=== PATIENT | female | born 1960 | race Caucasian/White ===

== ENCOUNTER 2016-12-06 16:15 | Inpatient (IN) | payer MEDICARE, OTHER ==
--- NOTE | ~2016-12-06 | DS ---
Unit #: [id number] #: [id number] Patient: KYM TELLEZ [id number] [address] [place], [place] [address] [id number] MR#: [id number] NAME: KYM TELLEZ. ROOM: 55 Age: 56 Sex: F Admission Date: 12/06/2016 : 1960 Discharge Date: 12/17/2016 Attending Physician: Mike Li M.D. Primary Care Physician: José Arshad M.D. DISCHARGE SUMMARY Please note: The patient had a lengthy stay because of acute on chronic respiratory failure. FINAL DIAGNOSES 1. Acute respiratory failure, which is resolved. 2. Chronic respiratory failure, patient is on 3 L continuous O2. 3. Pneumonia. 4. Chronic obstructive pulmonary disease exacerbation. 5. Congestive heart failure with ejection fraction of 40%. 6. Hypertension. 7. Possible obstructive sleep apnea. 8. Diabetes mellitus. 9. Hyperlipidemia. 10. Morbid obesity. 11. Nicotine abuse. DISCHARGE MEDICATIONS 1. Augmentin 875 mg p.o. b.i.d. 2. Prednisone tapering dose. 3. Symbicort 160/4.5 twice a day. 4. Levemir 10 units subcutaneous nightly. 5. Mycostatin powder topically to abdomen. 6. Hydralazine 100 mg b.i.d. 7. Spironolactone 25 mg daily. 8. Plavix 75 mg daily. 9. Nitrostat 0.4 mg sublingual p.r.n. 10. Malmo 10/325 q.6 p.r.n. dispense 24. Prescription written by Dr. Li. 11. Omeprazole 40 mg daily. 12. Imdur 60 mg daily. 13. Zanaflex on p.r.n. basis. 14. Zestril 40 mg daily. 15. Bumex 2 mg twice a day. 16. Metoprolol 50 mg q.12. 17. Januvia 100 mg daily. 18. Gabapentin continue home dose. DIAGNOSTIC STUDIES LABORATORY: Lab workup on discharge: Blood cultures are negative. BMP shows sodium 142, potassium 3.7, chloride 88, BUN 29, creatinine 0.8, calcium 9.6. WBC 7.1, hemoglobin 13, hematocrit 41.8, and platelet count of 175,000. Procalcitonin level 0.05. These are discharge labs. IMAGING: Significant radiological studies done were: Unit #: [id number] #: [id number] Patient: KYM TELLEZ CT of the chest which was done on December 14, 2016, for recurrent acute respiratory failure. It showed patchy airspace disease in the upper lobe and both lower lobes. No pulmonary embolism. CT scan of the head was done on . Because of patient's confusion, there was a concern which was negative for any acute infarction. HOSPITAL COURSE Ms. Ma, a 56-year-old morbidly obese female, was admitted on December 07, for shortness of breath and was diagnosed with acute on chronic hypercapnic hypoxic respiratory failure, acute and chronic systolic heart failure with ejection fraction of 45%, COPD exacerbation. The patient was seen by Dr. Tobin. Medications were adjusted. The patient was also seen by Dr. Combs. The patient was improving when on she had again acute respiratory failure. Chest x-ray was done, diagnosed with pneumonia and was treated with IV Zosyn. The patient has improved again. She was on 8 L Oxymizer which has been tapered down to 3 L nasal cannula. She is doing much better at this time, is being discharged home on above medications. The patient may have obstructive sleep apnea. That will be worked up as outpatient. PHYSICAL EXAMINATION On discharge: VITAL SIGNS: Blood pressure 108/54, respiratory rate 19, pulse is 60, temperature 97.8. CHEST: Decreased air entry bilaterally. CARDIOVASCULAR: S1, S2 positive. Regular rhythm. DISCHARGE INSTRUCTIONS 1. Followup primary care provider in one week. 2. Followup with Dr. Combs's nurse practitioner in two weeks. 3. Arrange sleep apnea study as outpatient. 4. Medications as per med rec. 5. [facility] to evaluation and treat for home healthcare. 6. Weight loss counseling done. Dictated by... Janell Greenberg TD: 12/18/2016 11:36 JOB #: [id number] DISCHARGE SUMMARY X Mila Diaz MD X DISCHARGE SUMMARY
--- NOTE | ~2016-12-06 | EKG ---
PATIENT: KYM TELLEZ UNIT #: [id number] Ventricular Rate: 107 BPM Atrial Rate: 107 BPM P-R Interval: 128 ms QRS Duration: 110 ms Q-T Interval: 382 ms QTC Calculation(Bezet): 509 ms P Walton: 56 degrees Calculated R Walton: 64 degrees Calculated T Walton: 28 degrees Diagnosis Line: Sinus tachycardia Diagnosis Line: Low voltage QRS Diagnosis Line: Pulmonary disease pattern Diagnosis Line: Poor R wave progression questionable lead position Diagnosis Line: or body habitus Cannot rule out Anterior infarct Diagnosis Line: Abnormal ECG Diagnosis Line: When compared with ECG of 26-APR-2016 11:43, Diagnosis Line: No significant change was found Diagnosis Line: Confirmed by LINCOLN WARD MD ([id number]) on 12/06/2016 Diagnosis Line: 6:54:12 PM INTERPRETING MD: ED ZIMMERMAN
--- NOTE | ~2016-12-06 | CO ---
Unit #: [id number] #: [id number] Patient: KYM MORAN [id number] [address] [place], [place] [address] [id number] I MR#: [id number] NAME: KYM MORAN ROOM: [facility] Age: 56 Sex: F Admission Date: 12/06/2016 : 1960 Attending Physician: Mike Li M.D. Primary Care Physician: José Arshad M.D. Consultation Date: 12/07/2016 CONSULTATION REPORT REASON FOR CONSULTATION Respiratory failure. HISTORY OF PRESENT ILLNESS The patient is a 56-year-old female with COPD, heart rate, sleep apnea, noncompliant with inhaled medicines, noncompliant with CPAP and ongoing active tobacco use. She was seen by Dr. Daniels one year ago but states that she is not followed routinely in our office. She has had a two week history of increasing shortness of breath. She has worsening dyspnea on exertion and presented to the hospital. She initially had hypercapnic hypoxemic respiratory failure with a pH of 7.32, pCO2 is 60, pO2 of 111 and was on mask ventilation. She is diuresed overnight and has been treated with nebulized bronchodilators and steroids. She feels a little better today but admits that she has not gotten out of bed. She has had some wheezing, some sputum production. No anginal type chest pain. She denies hemoptysis or fever. PAST MEDICAL HISTORY Remarkable for left ventricular dysfunction with an EF of around 40%, history of coronary artery disease, obstructive sleep apnea intolerant to CPAP, chronic respiratory failure on oxygen at night, COPD, noncompliant with controlling medications. Morbid obesity, hypertension, hyperlipidemia, diabetes, and history of kidney stones. MEDICATIONS AT HOME She has a Symbicort inhaler, which she uses p.r.n. She has a Combivent inhaler. Other medications according to med rec, Lopressor, Lasix, Zestril, Imdur, Lortab, Valium 10 mg a day, hydralazine, Prilosec, Neurontin, and tizanidine. ALLERGIES Sulfa, which "puts her sleep." Lipitor, which causes muscle cramps. SOCIAL HISTORY She continues to smoke. FAMILY HISTORY No familial lung disease. REVIEW OF SYSTEMS No anginal chest pain, although she does state if she is short of breath when she eats, she gets this sort of epigastric fullness sensation. No hemoptysis, pleurisy, melena, hematochezia, hematuria, dysuria, focal weakness, paresthesias. She says she has been "swollen." No fever or Unit #: [id number] #: [id number] Patient: KYM MORAN chills. Further review of systems negative. PHYSICAL EXAMINATION VITAL SIGNS: Patient who is afebrile, pulse 77, respiratory rate 24, blood pressure 102/53, 5'1", 277 pounds, BMI is 53. HEENT: Pupils equal, round and reactive to light. Sclerae are anicteric. Head atraumatic. NECK: Supple. No supraclavicular or cervical adenopathy appreciated, although exam hinders sensitivity to that exam. PULMONARY: A few bibasilar posterior crackles. Expiratory phase is short. No deficit wheeze or stridor. CARDIAC: Reveals distant heart tones. No definite murmur, rub or gallop. ABDOMEN: Soft, nontender, no hepatomegaly or rebound. EXTREMITIES: Reveal no significant edema currently. No calf tenderness. No clubbing or cyanosis. NEUROLOGIC: Grossly intact. No focal muscle or sensory deficit. SKIN: Warm and dry without acute rash or diaphoresis. DIAGNOSTIC STUDIES LABORATORY STUDIES: ABG as above. Currently her arterial blood gas - pH 7.45, pCO2 48, pO2 59 that was on Oxymizer. BUN is 17, creatinine 0.7, BNP 1,327. INR normal. Cardiac enzymes normal. White blood cell count was 12.2, now 9.9, hemoglobin 13.2, platelet count 185. Tox screen was not performed. IMAGING STUDIES: Chest x-ray hindered by body habitus but it does appear she has some interstitial edema. No significant pleural effusions. Cardiomegaly noted. CARDIOLOGY STUDIES: Rhythm strips are sinus. Just some baseline artifact but I do not appreciate any definite acute ischemic change. There are nonspecific ST-T wave changes. IMPRESSION 1. Acute on chronic hypercapnic/hypoxemic respiratory failure multifactorial. 2. Pulmonary edema with left ventricular dysfunction. 3. Mitral regurgitation. 4. Obstructive sleep apnea not treated. 5. Respiratory failure on nocturnal oxygen. 6. Chronic obstructive pulmonary disease with historical wheezing but no current wheezing by exam, noncompliant with inhaled medications. 7. Ongoing active tobacco use. 8. Coronary artery disease, diabetes, hypertension, hyperlipidemia, etc. PLAN Noninvasive mask ventilation, will try to transition to high flow oxygen at least during the day, continue mask ventilation at night. Continue diuresis. Continue steroid for today but those will be discontinued in the morning. I have stressed the importance of compliance with her Symbicort and that will be reinstituted here. For now, during her acute decompensation with hypercapnia, will discontinue her benzodiazepines. I would consider not using them as an outpatient if at all possible. She certainly will need to undergo re-evaluation of her sleep apnea as an outpatient given her heart failure and I have discussed briefly with her and her (1) of sleep apnea and its connection to heart failure. Certainly no smoking is a great benefit. Unit #: [id number] #: [id number] Patient: KYM MORAN Thank you very much for allowing me to participate in the care of Ms. Moran. Dictated by... Anton Combs M.D. ERNA/roz TD: 12/07/2016 11:39 JOB #: [id number] CONSULTATION REPORT X Anton Combs MD CONSULTATION REPORT
--- NOTE | ~2016-12-06 | CT71 ---
[facility] A Service [facility] RADIOLOGY TEXT RESULTS PATIENT: KYM TELLEZ LOCATION: [place] [address] : [birth year] UNIT #: [id number] AGE: [address]: Mike Li MD SEX: F ORDER DR: [id number] [facility] [address]. [place], [place] [address] [id number] I MR#: [id number] #: [id number] NAME: KYM TELLEZ : 1960 SEX: F STUDY DATE/TIME: 12/11/2016 17:15 UNIT: [facility] ROOM: [facility] STUDY DESCRIPTION: CT Head Wo Contrast Attending Physician: Mike Li M.D. Ordering Physician: Mike Li M.D. Primary Care Physician: José Arshad M.D. MEDICAL IMAGING REPORT This report is preliminary unless electronic signature is present EXAM Head CT no contrast HISTORY Mental status change, confusion for one day COMPARISON Prior head CT dated 05/04/2014. TECHNIQUE This CT exam was performed with one or more of the following radiation dose reduction techniques: automatic control, adjustment of mA and/or kV according to patient size, and iterative reconstruction. FINDINGS There is motion degradation though generally fairly mild. There is no evidence of hemorrhage, mass or hydrocephalus or extraaxial fluid collection. Brain parenchymal density is normal. The extracranial soft tissues are normal. The skull base and calvaria are normal with the exception of some ethmoid mucosal thickening as well as sphenoid sinus fluid bilaterally. IMPRESSION Negative unenhanced head CT with the exception of fluid in his sphenoid sinus chambers bilaterally. This could indicate sphenoid sinusitis but the brain itself is normal. The exam is otherwise unremarkable. Dictated by... Emiliano Hernandez M.D. [facility] A Service [facility] RADIOLOGY TEXT RESULTS PATIENT: KYM TELLEZ LOCATION: [facility] : [birth year] UNIT #: [id number] AGE: [address]: Mike Li MD SEX: F ORDER DR: THIS IS AN ELECTRONICALLY VERIFIED REPORT Emiliano Hernandez M.D. at 12/14/2016 12:27 PM ENRIKE/marisa TD: 12/12/2016 00:45 JOB #: [id number] MEDICAL IMAGING REPORT COPY
--- NOTE | ~2016-12-06 | EKG ---
PATIENT: KYM TELLEZ UNIT #: [id number] Ventricular Rate: 93 BPM Atrial Rate: 93 BPM P-R Interval: 132 ms QRS Duration: 116 ms Q-T Interval: 410 ms QTC Calculation(Bezet): 509 ms P Richford: 68 degrees Calculated R Richford: 76 degrees Calculated T Richford: 94 degrees Diagnosis Line: Normal sinus rhythm Diagnosis Line: Possible Left atrial enlargement Diagnosis Line: Prolonged QT Diagnosis Line: Abnormal ECG Diagnosis Line: When compared with ECG of 06-DEC-2016 15:56, Diagnosis Line: Minimal criteria for Anterior infarct are no Diagnosis Line: longer Present Diagnosis Line: T wave inversion no longer evident in Inferior Diagnosis Line: leads Diagnosis Line: Nonspecific T wave abnormality, worse in Lateral Diagnosis Line: leads Diagnosis Line: Confirmed by LINCOLN WARD MD ([id number]) on 12/09/2016 Diagnosis Line: 7:07:18 AM INTERPRETING MD: ED ZIMMERMAN
--- NOTE | ~2016-12-06 | BMI ---
[facility] DATE: 12/07/16 Patient: KYM TELLEZ Physician: AL[place] Address: [address] Room/Bed: [address], Zip: [place] [address] Admit Date: 12/06/16 Date of : 62 Height: 5 1 Weight: 277 126 HIGH BMI NOTE: DX: 56 Y.O. FEMALE ADMITTED FOR RESPIRATORY FAILURE ANTHROPOMETRICS: 5'1", WT: 277# (126 KG), BMI: 52.3 DIET: CC + FLUID RESTRICTION INTERVENTION: 1. CC DIET + FLUID RESTRICTION RECOMMENDATIONS: 1. RECOMMEND TO ADD HH TO CURRENT DIET ORDER ABOVE TO PROMOTE GRADUAL WEIGHT LOSS TOWARDS HEALTHY BMI (19.0-25.0) OR +/-10%IBW RD WILL F/U PER PROTOCOL Respectfully, ANGELA RENAE MS, RD, LD [facility] cc: client file
--- NOTE | ~2016-12-06 | CR72 ---
[facility] A Service of [facility] RADIOLOGY TEXT RESULTS PATIENT: KYM TELLEZ LOCATION: [place] [address] : [birth year] UNIT #: [id number] AGE: [address]: Mike Li MD SEX: F ORDER DR: [id number] [facility] [address] [place], [place] [address] [id number] I MR#: [id number] Acc #: [id number] NAME: KYM TELLEZ : 1960 SEX: F STUDY DATE/TIME: 12/08/2016 7:29 UNIT: [facility] ROOM: [facility] STUDY DESCRIPTION: CR Chest Single View Portable Attending Physician: Mike Li M.D. Ordering Physician: Magnus Dodd M.D. Primary Care Physician: José Arshad M.D. MEDICAL IMAGING REPORT This report is preliminary unless electronic signature is present EXAM AP chest radiograph HISTORY Shortness of breath for 9 days, history of heart failure, uterine carcinoma and coronary artery disease. FINDINGS An AP portable view is obtained showing cardiac enlargement. Pulmonary vascular pattern of the chest appears normal. Lungs are clear with no acute infiltrates. CONCLUSION Cardiomegaly. No evidence of overt heart failure. Dictated by... Ray Peck M.D. THIS IS AN ELECTRONICALLY VERIFIED REPORT Ray Peck M.D. at 12/08/2016 4:31 PM BOUCHRA/ian TD: 12/08/2016 08:16 JOB #: [id number] MEDICAL IMAGING REPORT COPY
--- NOTE | ~2016-12-06 | CR72 ---
[facility] A Service of [facility] RADIOLOGY TEXT RESULTS PATIENT: KYM TELLEZ LOCATION: [place] [address] : [birth year] UNIT #: [id number] AGE: [address]: Mike Li MD SEX: F ORDER DR: [id number] [facility] [address]. [place], [place] [address] [id number] I MR#: [id number] Acc #: [id number] NAME: KYM TELLEZ : 1960 SEX: F STUDY DATE/TIME: 12/12/2016 15:22 UNIT: [facility] ROOM: [facility] STUDY DESCRIPTION: CR Chest Single View Portable Attending Physician: Mike Li M.D. Ordering Physician: J Carlos Bryan M.D. Primary Care Physician: José Arshad M.D. MEDICAL IMAGING REPORT This report is preliminary unless electronic signature is present EXAM Portable chest. DATE OF EXAM 12/12/2016 HISTORY Pneumonia. Shortness of air and respiratory failure for 1 month. FINDINGS Cardiomegaly has decreased slightly since yesterday. Mild central vascular congestion persists. Mild linear atelectasis or scarring in the left mid lung. Limited evaluation of lung bases due to underpenetration. No definite airspace consolidation. IMPRESSION 1. Decreased cardiac enlargement compared to yesterday. 2. No new infiltrates are identified. 3. Sensitivity is limited by underpenetration of the left base due to large size. Dictated by... Faisal Franco M.D. THIS IS AN ELECTRONICALLY VERIFIED REPORT Faisal Franco M.D. at 12/13/2016 11:30 PM LUCINA/moy TD: 12/13/2016 00:05 JOB #: [id number] [facility] A Service of [facility] RADIOLOGY TEXT RESULTS PATIENT: KYM TELLEZ LOCATION: [place] [address] : [birth year] UNIT #: [id number] AGE: [address]: Mike Li MD SEX: F ORDER DR: MEDICAL IMAGING REPORT COPY
--- NOTE | ~2016-12-06 | EKG ---
PATIENT: KYM TELLEZ UNIT #: [id number] Ventricular Rate: 77 BPM Atrial Rate: 77 BPM P-R Interval: 126 ms QRS Duration: 114 ms Q-T Interval: 422 ms QTC Calculation(Bezet): 477 ms P Rumford: 61 degrees Calculated R Rumford: 120 degrees Calculated T Rumford: 49 degrees Diagnosis Line: Normal sinus rhythm Diagnosis Line: Left posterior fascicular block Diagnosis Line: Possible , old Inferior infarct Diagnosis Line: Abnormal ECG Diagnosis Line: When compared with ECG of 08-DEC-2016 07:03, Diagnosis Line: Left posterior fascicular block is now Present Diagnosis Line: Nonspecific T wave abnormality no longer evident Diagnosis Line: in Lateral leads Diagnosis Line: Confirmed by LINCOLN WARD MD ([id number]) on 12/10/2016 Diagnosis Line: 7:09:47 AM INTERPRETING MD: ED ZIMMERMAN
--- NOTE | ~2016-12-06 | CT16 ---
[facility] A Service of [facility] RADIOLOGY TEXT RESULTS PATIENT: KYM TELLEZ LOCATION: [facility] [id number] : [birth year] UNIT #: [id number] AGE: [address]: Mike Li MD SEX: F ORDER DR: [id number] [facility] [address] [place], [place] [address] [id number] I MR#: [id number] Acc #: [id number] NAME: KYM TELLEZ : 1960 SEX: F STUDY DATE/TIME: 12/14/2016 12:28 UNIT: [facility] ROOM: [facility] STUDY DESCRIPTION: CT Angio Chest for PE Attending Physician: Mike Li M.D. Ordering Physician: Anton Combs M.D. Primary Care Physician: José Arshad M.D. MEDICAL IMAGING REPORT This report is preliminary unless electronic signature is present EXAM 1. CT of the chest with IV contrast 12/14/[address] angiography of the pulmonary arteries HISTORY Shortness of breath and dyspnea since 12/03/2016 with acute decompensation of respiratory effort. TECHNIQUE Transaxial imaging of the chest was performed with an IV bolus of contrast media. CT angiography was performed with 3-D MIP multiplanar reconstructions through the pulmonary arteries. This CT exam was performed with one or more of the following radiation dose reduction techniques: automatic exposure control, adjustment of mA and/or kV according to patient size, and iterative reconstruction. COMPARISON STUDIES The studies compared to the previous examination of December 22, 2011. FINDINGS Scans through the lungs shows some linear infiltrate in the left upper lobe and in the right upper lobe. Some patchy infiltrate in the anterior aspect of the right lower lobe and dependently in the left lower lobe. All these are associated with some volume loss. There are enlarged left periaortic nodes which appear stable compared with the patient's last study. Small nodes are also identified in the subcarinal region also stable. Heart size in the patient is enlarged. Scans through the upper abdomen show postop changes of prior cholecystectomy. There is an incidental left renal cyst. CTA was performed with 3-D MIP multiplanar reconstructions through the pulmonary arteries. The opacification of the pulmonary arteries is STS. [facility] A Service of [facility] & [facility] RADIOLOGY TEXT RESULTS PATIENT: KYM TELLEZ LOCATION: [facility] [id number] : [birth year] UNIT #: [id number] AGE: [address]: Mike Li MD SEX: F ORDER DR: suboptimal. The central pulmonary arteries appear normal. The more peripheral pulmonary arteries do not show any definite filling defects but there certainly is some degradation due to the relatively poor contrast bolus. 3-D reconstructions were reviewed. Again the pulmonary arteries themselves appear negative but there is some limitation of the study related to the degree of opacification. There is no evidence of pleural or significant pericardial fluid. No evidence of aneurysm or dissection. CONCLUSION 1. Patchy airspace disease in the upper lobes and in both lower lobes with some volume loss. 2. No evidence of pulmonary embolism. 3. Mediastinal lymphadenopathy, stable. 4. No evidence of pulmonary embolism. No evidence of pleural or pericardial fluid. No evidence of aneurysm or dissection. 5. Status post cholecystectomy. Dictated by... Ray Peck M.D. THIS IS AN ELECTRONICALLY VERIFIED REPORT Ray Peck M.D. at 12/14/2016 4:24 PM BOUCHRA/vikash TD: 12/14/2016 15:08 JOB #: [id number] MEDICAL IMAGING REPORT COPY
--- NOTE | ~2016-12-06 | HP ---
Unit #: [id number] #: [id number] Patient: FRANCESCA MORAN [id number] [address] [place], [place] [address] [id number] MR#: [id number] NAME: FRANCESCA MORAN. ROOM: [facility] Age: 56 Sex: F Admission Date: 12/06/2016 : 1960 Attending Physician: Mike Li M.D. Primary Care Physician: José Arshad M.D. HISTORY AND PHYSICAL CHIEF COMPLAINT Shortness of breath. HISTORY OF PRESENTING ILLNESS Ms. Francesca Moran is a 56-year-old morbidly obese female with a history of chronic respiratory failure, COPD, severe mitral regurgitation, systolic congestive heart failure with ejection fraction of 45%, coronary artery disease, status post PCI in 2000, hypertension, hyperlipidemia, diabetes mellitus type 2, and tobacco abuse. PAST SURGICAL HISTORY 1. Cardiac catheterization. 2. Cholecystectomy. 3. Hernia repair. 4. Hysterectomy. HOME MEDICATIONS 1. Lopressor 50 mg twice daily. 2. Lasix 40 mg twice daily. 3. Zestril 40 mg daily. 4. Isosorbide 60 mg daily. 5. Lortab 10/325 at 1 tablet q.6 p.r.n. 6. Valium 10 mg daily. 7. Symbicort 2 puffs inhaler twice daily. 8. Hydralazine 50 mg q.8. 9. Prilosec 40 mg daily. 10. Neurontin 600 mg 3 times daily. 11. Tizanidine 4 mg 3 times daily. SOCIAL HISTORY Patient has a history of smoking and has been smoking for a long period of time. No history of alcohol abuse or illicit drug abuse. FAMILY HISTORY Coronary artery disease. Her mother had a myocardial infarction. Her father at the age of 56. Her brother also has significant heart disease and has a pacemaker. ALLERGIES SULFA MEDICATIONS. REVIEW OF SYSTEMS Patient has been having shortness of breath for the last few days which was gradually getting worse. She did not have fever, chills, or rigors. Unit #: [id number] #: [id number] Patient: FRANCESCA MORAN She has had some wheezing at home. No chest pain, no hemoptysis, no syncopal episode, no melena, no nausea, vomiting, or diarrhea, and no focal weakness. PHYSICAL EXAMINATION GENERAL: Patient is being evaluated in bed 1 in the ICU. VITAL SIGNS: Patient's BMI is 53. Blood pressure is 111/64, respiratory rate 18, pulse 86, and temperature is 97.3. HEENT: Head is normocephalic. Eye movements are normal. No conjunctival congestion. NECK: Supple. Trachea is in midline. CHEST: Decreased air entry in the bases. Some wheezing is heard. CARDIOVASCULAR: S1 and S2 positive. Regular rhythm. ABDOMEN: Obese, soft. Negative tenderness. EXTREMITIES: No significant edema. CENTRAL NERVOUS SYSTEM: Awake, alert, and oriented x3. No focal neurological deficit. SKIN: Warm and dry. DIAGNOSTIC STUDIES LABORATORY: Sodium 141, potassium 4.2, chloride 101, BUN 17, creatinine 0.7, and glucose 204. BNP is 1327. CBC shows WBC of 9.9, hemoglobin 13.2, hematocrit 42.2, and platelet count of 185,000. Troponin is less than 0.05. IMAGING: Chest x-ray shows enlargement of the cardiac silhouette. The pulmonary vasculature is abnormally prominent and somewhat indistinct. Increased peribronchial markings seen. Increased interstitial and airspace densities extending from the central lung zones toward the periphery bilaterally and symmetrically. Appearance suggests moderate to severe pulmonary edema. ASSESSMENT Patient is being admitted to the ICU with the diagnoses of: 1. Acute on chronic hypercapnic/hypoxic respiratory failure. 2. Acute on chronic systolic heart failure with ejection fraction of 45%. 3. Severe mitral regurgitation. 4. Chronic obstructive pulmonary disease. 5. Obstructive sleep apnea. 6. Hypertension. 7. Coronary artery disease with history of percutaneous coronary intervention in the past. 8. Diabetes mellitus with hyperglycemia secondary to steroids. 9. Tobacco abuse. 10. Morbid obesity. PLAN Admit to ICU. Dr. Dodd has been consulted. Patient is being started on IV Bumex 2 mg q.12 hours. Aldactone 25 mg is being added. A 2000 mL fluid restriction is being done. Ins and outs will be done. Dr. Combs has been consulted. Symbicort is being added, and mini-neb treatment is being done. Valium is being discontinued. BiPAP as per Dr. Combs. Home medications have been reviewed. Patient is being started on Levemir 10 units subcutaneous daily. Continue Accu-Cheks a.c. and at bedtime and insulin sliding scale low-dose protocol. Please refer to progress note for further orders. Dictated by Unit #: [id number] #: [id number] Patient: FRANCESCA MORAN M.D. KN/am TD: 12/07/2016 16:26 JOB #: [id number] HISTORY AND PHYSICAL X Mila Diaz MD X HISTORY AND PHYSICAL
--- NOTE | ~2016-12-06 | CR72 ---
[facility] A Service of [facility] RADIOLOGY TEXT RESULTS PATIENT: KYM TELLEZ LOCATION: [facility] 55- : 62 UNIT #: [id number] AGE: [address]: Mike Li MD SEX: F ORDER DR: [id number] [facility] [address] [facility]. [place], [place] [address] [id number] I MR#: [id number] Acc #: [id number] NAME: KYM TELLEZ. : 1960 SEX: F STUDY DATE/TIME: 12/11/2016 16:05 UNIT: [facility] ROOM: [facility] STUDY DESCRIPTION: CR Chest Single View Portable Attending Physician: Mike Li M.D. Ordering Physician: Mike Li M.D. Primary Care Physician: José Arshad M.D. MEDICAL IMAGING REPORT This report is preliminary unless electronic signature is present EXAM AP portable chest. DATE OF EXAM 12/11/2016 at 16:05. HISTORY Respiratory failure with elevated temperature and shortness of breath today. History of uterine cancer. Additional history of congestive heart failure, bronchitis and coronary artery stent placement in 1998. COMPARISON AP portable chest, 12/08/2016. FINDINGS Low volume inspiration. The study is attenuated by body habitus. Moderate cardiac enlargement is thought to be stable. Central vascular congestive changes are thought to be present without ros pulmonary edema. There is some linear opacity in the left mid lung which may represent scarring or atelectasis. No definite pleural effusion is seen. IMPRESSION 1. Moderate, but stable cardiac enlargement with suspected mild central vascular congestion. No overt changes of pulmonary edema. 2. Minimal linear scarring or linear subsegmental atelectasis in the left midlung. Dictated by... Linda Crook M.D. THIS IS AN ELECTRONICALLY VERIFIED REPORT Linda Crook M.D. at 12/21/2016 7:42 AM [facility] A Service of [facility] RADIOLOGY TEXT RESULTS PATIENT: KYM TELLEZ LOCATION: [facility] 556-01 : 62 UNIT #: [id number] AGE: [address]: Mike Li MD SEX: F ORDER DR: JEFF/moy TD: 12/11/2016 22:57 JOB #: [id number] MEDICAL IMAGING REPORT COPY
--- NOTE | ~2016-12-06 | A ---
[facility] Nutrition Therapy DATE: 12/16/16 Patient: KYM TELLEZ Physician: ALMA Address: [address] Room/Bed: [address] [place] [address], Zip: [place] [address] Admit Date: 12/06/16 Date of : 62 Height: 5 1 Weight: 280 127.4 NUTRITIONAL ASSESSMENT: REASON: LOS PMH: Chronic resp failure, COPD, Severe mitral regurg, CHF, CAD, HTN, DM, 2-3 PPD smoker Anthropometrics: 61", 284#, BMI 53.7 Labs: Cl- 92, Gluc 285, POC 121-335, A1c on admit-7.6 Meds: Bumex, Novolog-high SS, Solumedrol, Zofran-prn, Levemir, Januvia Assessment: 56 y/o female admitted for respiratory failure, AE CHF. RD trigger for LOS. Tolerating Cardiac/Carb consistent diet. Consuming 75-100% of meals. Poor senior living but denies chewing or swallowing difficulty. No N/V/D. Reviewed current diet restrictions-pt verbalized understanding. Dx: Morbid obesity r/t lifestyle, diet noncompiance AEB BMI >40. Intervention: 1. Carb consistent/Heart healthy diet Monitoring, Evaluation and Goals: 1. Consume >50% of meals 2. Improve Gluc Recommendations: Continue current diet to promote gradual wt loss towards healthy BMI. Respectfully, GUICHO RECINOS RD, LD [facility] cc: client file
--- NOTE | ~2016-12-06 | CR63 ---
[facility] A Service of [facility] RADIOLOGY TEXT RESULTS PATIENT: KYM TELLEZ LOCATION: [facility] [id number] : 62 UNIT #: [id number] AGE: [address]: Mike Li MD SEX: F ORDER DR: [id number] [facility] [address] [facility]. [place], [place] [address] [id number] I MR#: [id number] Acc #: [id number] NAME: KYM TELLEZ : 1960 SEX: F STUDY DATE/TIME: 12/14/2016 8:34 UNIT: [facility] ROOM: [facility] STUDY DESCRIPTION: CR Chest 2 View Attending Physician: Mike Li M.D. Ordering Physician: Shahbaz Briseno M.D. Primary Care Physician: José Arshad M.D. MEDICAL IMAGING REPORT This report is preliminary unless electronic signature is present EXAM PA and lateral chest DATE OF EXAMINATION 12/14/2016 COMPARISON Comparison examination is dated 12/12/2016. HISTORY Shortness of breath, pneumonia, respiratory failure, and cough. Admitted on 12/06/2016 for the above symptoms. FINDINGS PA and lateral views of the chest are obtained. The film is underpenetrated. Exam shows an obscured diaphragm on the lateral film and the left hemidiaphragm is not clearly seen. There is also some vague increased density in the right upper lobe. This is on a background of passive congestion. CONCLUSION Continued cardiomegaly. Passive congestion. Question raised of infiltrates in the right upper lobe and left base. Please note that this film is markedly underpenetrated and not of diagnostic quality. Dictated by... Ray Peck M.D. THIS IS AN ELECTRONICALLY VERIFIED REPORT Ray Peck M.D. at 12/14/2016 4:24 PM BOUCHRA/alber [facility] A Service of [facility] RADIOLOGY TEXT RESULTS PATIENT: KYM TELLEZ LOCATION: [facility] : 62 UNIT #: [id number] AGE: [address]: Mike Li MD SEX: F ORDER DR: TD: 12/14/2016 11:38 JOB #: [id number] MEDICAL IMAGING REPORT COPY
--- NOTE | ~2016-12-06 | CO ---
Unit #: [id number] #: [id number] Patient: KYM TELLEZ [id number] [address] [place], [place] [address] [id number] I MR#: [id number] NAME: KYM TELLEZ. ROOM: [facility] Age: 56 Sex: F Admission Date: 12/06/2016 : 1960 Attending Physician: Mike Li M.D. Primary Care Physician: José Arshad M.D. CONSULTATION REPORT REASON FOR CONSULTATION Congestive heart failure. HISTORY OF PRESENT ILLNESS This is a 56-year-old female who is known to Dr. Dodd that has a history of coronary artery disease where she underwent angioplasty to the right coronary artery in 2000 after old inferior wall myocardial infarction. Her last cardiac testing was in 2012 where she was found to have single vessel coronary artery disease with 50% stenosis of the mid right coronary artery. Her ejection fraction at that time was 40 to 45%. She has hypertension, diabetes and severe COPD. The patient was admitted with a one week history of worsening dyspnea at rest and on exertion. She has mid sternal chest tightness on exertion without radiation to her neck, arm or jaw. There is no associated dyspnea or palpitations. She reports no fever, chills or hemoptysis. She came to the emergency room for evaluation where she was found to have an elevated BNP of 1,950. Chest x-ray was noted for congestive heart failure. She was treated in the emergency room with IV steroids, nitrates and diuretics. She was placed on BiPAP and subsequently was transferred to the intensive care unit. Her troponin has been negative with no acute ischemic changes on EKG. PAST MEDICAL HISTORY 1. Old inferior wall myocardial infarction status post PCI to the right coronary artery in 2000. 2. 2D echocardiogram, 10/28/2015, in our office which shows an ejection fraction of 45 to 50% with impaired left ventricular relaxation. There is moderate to severe mitral regurgitation, mild to moderate tricuspid regurgitation and moderate concentric left ventricular hypertrophy. 3. Dobutamine Cardiolite stress test, 05/06/2014, which showed no ischemia or infarct. Ejection fraction of 51%. 4. Chronic systolic heart failure. 5. Hypertension. 6. Hyperlipidemia. 7. Diabetes mellitus type 2. 8. COPD. 9. Obesity. 10. Questionable statin myopathy. 11. Renal calculi. 12. Nicotine abuse. PAST SURGICAL HISTORY Unit #: [id number] #: [id number] Patient: KYM TELLEZ 1. Cholecystectomy. 2. Hysterectomy. 3. Hernia repair. SOCIAL HISTORY The patient is . She continues to smoke a pack of cigarettes daily. There is no report of illicit drug or alcohol use. FAMILY HISTORY Positive for myocardial infarction in a mother in her eighties. Father from a [place] at age 56. She had a brother who had heart disease and a pacemaker. ALLERGIES Sulfa and atorvastatin. HOME MEDICATIONS 1. Metoprolol tartrate 50 mg b.i.d. 2. Furosemide 40 mg b.i.d. 3. Lisinopril 40 mg daily. 4. Isosorbide mononitrate 60 mg daily. 5. Hydrocodone/acetaminophen 10/325 mg q.6 hours p.r.n. 6. Diazepam 10 mg daily. 7. Symbicort 160/4.5 mcg two puffs b.i.d. 8. Hydralazine 50 mg q.8 hours. 9. Prilosec 40 mg daily. 10. Neurontin 600 mg t.i.d. 11. Zanaflex 4 mg t.i.d. REVIEW OF SYSTEMS CONSTITUTIONAL: Negative for fever or chills. The patient reports no weight gain or weight loss. HEENT: No headache, hearing or vision changes, difficulty with swallowing. No dizziness. CARDIOVASCULAR: The patient has chest pain as described in the HPI. The patient denies palpitations. No paroxysmal nocturnal dyspnea, orthopnea. The patient denies syncope or near syncope. RESPIRATORY: Positive for dyspnea at rest and on exertion. No cough or hemoptysis. GASTROINTESTINAL: No abdominal pain, nausea, vomiting. No constipation or melena. EXTREMITIES: Negative for lower extremity edema. PHYSICAL EXAMINATION GENERAL APPEARANCE: This is 56-year-old, mildly obese white female who is in no acute respiratory distress. VITAL SIGNS: Blood pressure 114/59. Heart rate 89. Temperature 97.3. BMI 53. NEUROLOGIC: She is awake, alert and oriented without focal weakness. NECK: Trachea is midline. No thyromegaly or lymphadenopathy. No jugular venous distention. HEART: S1, S2. Heart sounds are normal. No murmurs, rubs or clicks. Regular rate and rhythm. No S3. CHEST: Diminished breath sounds with fine rales at the bases. No rhonchi or wheezing. ABDOMEN: Soft, obese with bowel sounds present. No organomegaly. EXTREMITIES: Without leg edema. SKIN: Warm and dry. Unit #: [id number] #: [id number] Patient: KYM TELLEZ DIAGNOSTIC STUDIES LABORATORY: Glucose 204, BUN 17, creatinine 0.7, sodium 141, potassium 4.2. BNP 1,327. CK MB 4.1. Troponin less than 0.05 x2. White count 9.9, hemoglobin 13.2, hematocrit 42.2, platelet count 185. IMAGING: Chest x-ray shows cardiomegaly and pulmonary edema. CARDIOVASCULAR: EKG: Sinus tachycardia with a rate of 107 beats per minute with poor R wave progression, questionable old anterior infarct with a QS pattern in V1 through V4. Low voltage QRS. IMPRESSION 1. Acute on chronic systolic heart failure. 2. Severe mitral regurgitation. 3. Cardiomyopathy with an ejection fraction of 45%. 4. Severe COPD. 5. Hypertension. 6. Stable angina with history of old inferior wall myocardial infarction status post PCI of the right coronary artery in 2000. 7. Diabetes mellitus type 2. 8. Morbid obesity. PLAN 1. Cardiology was consulted for congestive heart failure. We will increase IV diuretics. 2. Aldactone will be added. 3. Continue afterload reduction with TANA inhibitor. 4. The patient will need a right and left heart catheterization once fluid overload improves. 5. The patient has a widening QRS. We may consider revascularization therapy. 6. We will follow the patient with you. 7. Thank you for allowing us to assist with this patient's care. Dictated by... Minh Ferrer A.P.R.N. for Janell Alba/tory TD: 12/08/2016 06:43 JOB #: [id number] CONSULTATION REPORT X Minh Ferrer APRN X CONSULTATION REPORT
--- NOTE | ~2016-12-06 | CR72 ---
[facility] A Service of [facility] RADIOLOGY TEXT RESULTS PATIENT: KYM TELLEZ LOCATION: [address]11-25 : 62 UNIT #: [id number] AGE: [address]: Mike Li MD SEX: F ORDER DR: [id number] [facility] [address] [place], [place] [address] [id number] I MR#: [id number] Acc #: [id number] NAME: KYM TELLEZ : 1960 SEX: F STUDY DATE/TIME: 12/06/2016 15:59 UNIT: [facility] ROOM: [facility] STUDY DESCRIPTION: CR Chest Single View Portable Attending Physician: Mike Li M.D. Ordering Physician: Raymundo Blanca M.D. Primary Care Physician: José Arshad M.D. MEDICAL IMAGING REPORT This report is preliminary unless electronic signature is present EXAM Portable chest x-ray, 12/06/2016 HISTORY Short of air, cough. Dyspnea. Smoker 20-plus years. FINDINGS AP radiograph of chest presented. Comparison 07/23/2016. No acute bony abnormality. Enlargement of the cardiac silhouette compared to prior study. This may be a reflection of chamber enlargement or pericardial fluid. The pulmonary vasculature is abnormally prominent and somewhat indistinct. Increased peribronchial markings. Increased interstitial and airspace densities extending from the central lung zones toward the periphery bilaterally and symmetrically. Appearance suggests moderate to severe pulmonary edema with interstitial and airspace components. No definite pleural effusion. No pneumothorax. Followup to radiographic resolution recommended. Dictated by... Ray Diaz M.D. THIS IS AN ELECTRONICALLY VERIFIED REPORT Ray Diaz M.D. at 12/07/2016 10:16 PM JOSE ELIAS/pal TD: 12/06/2016 21:49 JOB #: [id number] MEDICAL IMAGING REPORT COPY
[2016-12-06 16:04] LABS: ARTERIAL BLD GAS O2 SATURATION 91.1 % (90.0-100.0); ARTERIAL BLOOD GAS CARBOXY HB 2.1 %sat (0.0-9.0); ARTERIAL BLOOD GAS HCO3 28.6 mmol/L; ARTERIAL BLOOD GAS MET HB 0.4 %sat (0.0-2.0); ARTERIAL BLOOD GAS pH 7.361 (7.350-7.450)
[2016-12-06 16:05] LABS: ARTERIAL BLOOD GAS ART SITE RIGHT RADIAL; ARTERIAL BLOOD GAS DELIVERY NASAL CANNULA; ARTERIAL BLOOD GAS FIO2 0.32 %; ARTERIAL BLOOD GAS PCO2 50.6 mmHg (35.0-45.0); ARTERIAL BLOOD GAS PO2 71.4 mmHg (80.0-100); ARTERIAL DRAW? YES
[2016-12-06 16:10] LABS: BASOPHIL# 0.1 X10e3 (0-0.3); BASOPHIL% 0.6 % (0-2.5); EOSINOPHIL# 0.1 X10e3 (0-0.7); HEMATOCRIT 42.7 % (35.0-45.0); HEMOGLOBIN 13.3 gm/dL (12.0-16.0); LYMPHOCYTE# 2.1 X10e3 (1.0-3.5); LYMPHOCYTE% 17.5 % (17.0-45.0); MEAN CORPUSCULAR HEMOGLOBIN 25.6 PG (28-34); MEAN CORPUSCULAR HGB CONC 31.2 g/dL (30-36); MEAN PLATELET VOLUME 9.9 FL (6.5-11.5); MONOCYTE% 8.3 % (3.0-12.0); NEUTROPHIL# 8.9 X10e3 (1.5-7.1); NEUTROPHIL% 72.6 % (40-75); PLATELET COUNT 180 X10e3 (140-420); RED BLOOD COUNT 5.21 X10e (3.90-5.30); RED CELL DISTRIBUTION WIDTH 16.6 % (11.0-15.5); WHITE BLOOD COUNT 12.2 X10e3 (4.0-10.5)
[2016-12-06 16:13] LABS: DIFF IND NO
[~2016-12-06 16:15] MED LIST: ACETAMINOPHEN650 M3 PO; ALBUTEROL 0.5ML INH; ALBUTEROL17 GM INH; ALPRAZOLAM PO; APRESOLINE PO; ARTHRITIS MED; ASPIRIN EC81 M1 PO; ASPIRIN PO; ASPIRIN81 M1 PO; ASPIRIN81 MG PO; BAYER CHEWABLE81 MG PO; BREO ELLIPTA 21 EACH INH; CHANTIX1 DOSE-PAC PO; COMBIVENT INH14.7 GM; COMBIVENT U/D3 M1 INH; COMBIVENT U/D3 ML INH; COMBIVENT14.7 GM INH; DIAZEPAM PO; DIAZEPAM10 MG PO; EFFEXOR-XR37.5 MG PO; FAMOTIDINE PO; FLEXERIL PO; FLOMAX0.4 M1 PO; FUROSEMIDE40 MG PO; GABAPENTIN600 MG PO; HYCODAN60 ML 5MG/ PO; HYDRALAZINE HCL25 MG PO; HYDRALAZINE HCL50 MG PO; HYDROCHLOROTHIA25 MG PO; HYDROCODON-ACE1 EAC9 PO; HYDROCODON-ACE1 EACH PO; IMDUR PO; IMDUR-ER60 M1 PO; LASIX PO; LESCOL PO; LEVAQUIN PO; LEVAQUIN750 M1 PO; LEVAQUIN750 MG PO; LIPITOR PO; LISINOPRIL PO; LISINOPRIL-HCTZ1 T14 PO; LISINOPRIL20 MG PO; LOPRESSOR PO; LORTAB 10-3251 EACH PO; LORTAB 5/500 TA1 TA2 PO; METOPROLOL SUCC25 MG PO; METOPROLOL SUCC50 MG; METOPROLOL SUCC50 MG PO; METOPROLOL TAR25 MG PO; MOBIC PO; NEBULIZER1 PKT MC; NERVE PILL; NEURONTIN600 MG PO; NEXIUM PO; OXYGEN; PANTOPRAZOLE SO40 MG PO; PERCOCET 7.5-31 EACH PO; PLAVIX PO; PRAVACHOL PO; PRAVACHOL10 MG PO; PREDNISONE PO; PREDNISONE10 MG PO; PROTONIX PO; PULMICORT0.25 MG/2 IH; SYMBICORT INH; SYMBICORT80 INH; TIZANIDINE HCL4 M1 PO; TOPROL XL PO; TOPROL XL50 MG PO; TRAMADOL HCL50 M2 PO; TUSSIONEX PENN473 ML PO; TYLOX1 CAP 5/50 PO; VICODIN 5/1 TAB 5/50 PO; VISTARIL PO; ZESTORETIC1 TAB PO; ZESTRIL40 MG PO; ZITHROMAX PO; ZITHROMAX1 G/PKT PO; ZOCOR PO; ZOCOR20 MG PO
[2016-12-06 16:16] LABS: POC - CKMB 4.6 ng/mL (0.0-7.9); POC - TROPONIN <0.05 ng/mL (<=0.05)
[2016-12-06 16:23] LABS: INR 1.1; PARTIAL THROMBOPLASTIN TIME 25.4 SECONDS (23.5-31.3); PROTHROMBIN TIME (PATIENT) 11.4 SECONDS (9.6-11.5)
[2016-12-06 16:41] LABS: ALBUMIN SERUM 3.3 g/dL (3.5-5.0); ALKALINE PHOSPHATASE 120 U/L (32-92); ALT (SGPT) 35 U/L (10-40); AST (SGOT) 32 U/L (10-42); BILIRUBIN, DIRECT 0.3 mg/dL (0.0-0.2); BILIRUBIN,INDIRECT 0.9 mg/dL (0.0-0.9); BILIRUBIN,TOTAL 1.2 mg/dL (0.2-2.0); BLOOD UREA NITROGEN 15 mg/dL (9-23); BUN/CREATININE RATIO 16.66; CALCIUM SERUM 8.7 mg/dL (8.4-10.2); CARBON DIOXIDE 27 mmol/L (22-31); CHLORIDE 103 mmol/L (100-111); CREATININE SERUM 0.9 mg/dL (0.6-1.4); GLOM FILT RATE Estimated ABOVE60 mL/min (>60); GLUCOSE FASTING 222 mg/dL (70-110); POTASSIUM 3.6 mmol/L (3.5-5.1); PROTEIN TOTAL SERUM 6.8 g/dL (6.0-8.3); SODIUM 138 mmol/L (135-145)
[2016-12-06] MEDS ORDERED: LOPRESSOR PO (18:11)
[2016-12-06] MEDS ORDERED: ZESTRIL40 MG PO (18:14)
[2016-12-06] MEDS ORDERED: LASIX PO (18:14)
[2016-12-06] MEDS ORDERED: LORTAB 10-3251 EACH PO (18:15)
[2016-12-06] MEDS ORDERED: ISOSORBIDE MONO60 M1 PO (18:15)
[2016-12-06] MEDS ORDERED: VALIUM10 M1 PO (18:16)
[2016-12-06] MEDS ORDERED: SYMBICORT INH (18:16)
[2016-12-06] MEDS ORDERED: HYDRALAZINE HCL50 MG PO (18:17)
[2016-12-06] MEDS ORDERED: NEURONTIN600 MG PO (18:17)
[2016-12-06] MEDS ORDERED: PRILOSEC PO (18:17)
[2016-12-06] MEDS ORDERED: TIZANIDINE HCL4 M1 PO (18:18)
[2016-12-06 18:19] LABS: POC - CKMB 4.1 ng/mL (0.0-7.9); POC - TROPONIN <0.05 ng/mL (<=0.05)
[2016-12-06 19:01] LABS: ARTERIAL BLD GAS O2 SATURATION 95.9 % (90.0-100.0); ARTERIAL BLOOD GAS CARBOXY HB 1.6 %sat (0.0-9.0); ARTERIAL BLOOD GAS MET HB 0.5 %sat (0.0-2.0)
[2016-12-06 19:02] LABS: ARTERIAL BLOOD GAS ART SITE RIGHT RADIAL; ARTERIAL BLOOD GAS PCO2 60.2 mmHg (35.0-45.0); ARTERIAL DRAW? YES
[2016-12-07 05:40] LABS: BASOPHIL% 0.4 % (0-2.5); HEMATOCRIT 42.2 % (35.0-45.0); HEMOGLOBIN 13.2 gm/dL (12.0-16.0); LYMPHOCYTE# 0.9 X10e3 (1.0-3.5); LYMPHOCYTE% 9.4 % (17.0-45.0); MEAN CELL VOLUME 81.6 FL (83-96); MEAN CORPUSCULAR HEMOGLOBIN 25.6 PG (28-34); MEAN CORPUSCULAR HGB CONC 31.3 g/dL (30-36); MONOCYTE# 0.2 X10e3 (0-1.0); MONOCYTE% 1.8 % (3.0-12.0); NEUTROPHIL# 8.7 X10e3 (1.5-7.1); NEUTROPHIL% 88.4 % (40-75); PLATELET COUNT 185 X10e3 (140-420); RED BLOOD COUNT 5.17 X10e (3.90-5.30); RED CELL DISTRIBUTION WIDTH 16.3 % (11.0-15.5); WHITE BLOOD COUNT 9.9 X10e3 (4.0-10.5)
[2016-12-07 05:45] LABS: DIFF IND NO
[2016-12-07 06:25] LABS: BLOOD UREA NITROGEN 17 mg/dL (9-23); BUN/CREATININE RATIO 24.28; CALCIUM SERUM 8.5 mg/dL (8.4-10.2); CARBON DIOXIDE 31 mmol/L (22-31); CHLORIDE 101 mmol/L (100-111); CREATININE SERUM 0.7 mg/dL (0.6-1.4); GLOM FILT RATE Estimated ABOVE60 mL/min (>60); GLUCOSE FASTING 204 mg/dL (70-110); POTASSIUM 4.2 mmol/L (3.5-5.1); SODIUM 141 mmol/L (135-145)
[2016-12-07] MEDS ORDERED: JANUVIA PO (06:41)
[2016-12-07 08:41] LABS: ARTERIAL BLD GAS O2 SATURATION 89.4 % (90.0-100.0); ARTERIAL BLOOD GAS HCO3 33.7 mmol/L; ARTERIAL BLOOD GAS MET HB 0.9 %sat (0.0-2.0); ARTERIAL BLOOD GAS PCO2 47.9 mmHg (35.0-45.0); ARTERIAL BLOOD GAS PO2 59.3 mmHg (80.0-100); ARTERIAL BLOOD GAS pH 7.456 (7.350-7.450)
[2016-12-07 08:42] LABS: ARTERIAL BLOOD GAS ALLEN TEST NORMAL; ARTERIAL BLOOD GAS ART SITE LEFT RADIAL; ARTERIAL BLOOD GAS DELIVERY NASAL CANNULA; ARTERIAL DRAW? YES
[2016-12-08 06:09] LABS: BASOPHIL% 0.2 % (0-2.5); EOSINOPHIL% 0.1 % (0.0-7.0); HEMATOCRIT 41.3 % (35.0-45.0); HEMOGLOBIN 13.1 gm/dL (12.0-16.0); LYMPHOCYTE# 0.9 X10e3 (1.0-3.5); LYMPHOCYTE% 4.8 % (17.0-45.0); MEAN CELL VOLUME 81.8 FL (83-96); MEAN CORPUSCULAR HEMOGLOBIN 25.9 PG (28-34); MEAN CORPUSCULAR HGB CONC 31.7 g/dL (30-36); MEAN PLATELET VOLUME 10.3 FL (6.5-11.5); MONOCYTE% 5.4 % (3.0-12.0); NEUTROPHIL# 16.2 X10e3 (1.5-7.1); NEUTROPHIL% 89.5 % (40-75); PLATELET COUNT 184 X10e3 (140-420); RED BLOOD COUNT 5.05 X10e (3.90-5.30); RED CELL DISTRIBUTION WIDTH 16.5 % (11.0-15.5)
[2016-12-08 06:20] LABS: DIFF IND YES; WHITE BLOOD COUNT 18.1 X10e3 (4.0-10.5)
[2016-12-08 06:29] LABS: BILIRUBIN,TOTAL 0.4 mg/dL (0.2-2.0); BUN/CREATININE RATIO 26.36; CALCIUM SERUM 8.9 mg/dL (8.4-10.2); CREATININE SERUM 1.1 mg/dL (0.6-1.4); GLOM FILT RATE Estimated 54.8 mL/min (>60); POTASSIUM 4.2 mmol/L (3.5-5.1); PROTEIN TOTAL SERUM 5.9 g/dL (6.0-8.3)
[2016-12-08 07:58] LABS: ANISOCYTOSIS SL; PLATELET ESTIMATE NORMAL (NORMAL)
[2016-12-08 07:59] LABS: RBC NORMAL YES
[2016-12-09 05:30] LABS: BASOPHIL% 0.2 % (0-2.5); EOSINOPHIL% 0.1 % (0.0-7.0); HEMATOCRIT 41.2 % (35.0-45.0); HEMOGLOBIN 12.9 gm/dL (12.0-16.0); LYMPHOCYTE# 2.4 X10e3 (1.0-3.5); MEAN CELL VOLUME 82.1 FL (83-96); MEAN CORPUSCULAR HEMOGLOBIN 25.7 PG (28-34); MEAN CORPUSCULAR HGB CONC 31.2 g/dL (30-36); MEAN PLATELET VOLUME 10.3 FL (6.5-11.5); MONOCYTE# 1.5 X10e3 (0-1.0); MONOCYTE% 10.9 % (3.0-12.0); NEUTROPHIL# 10.2 X10e3 (1.5-7.1); NEUTROPHIL% 71.8 % (40-75); PLATELET COUNT 208 X10e3 (140-420); RED BLOOD COUNT 5.02 X10e (3.90-5.30); RED CELL DISTRIBUTION WIDTH 16.6 % (11.0-15.5); WHITE BLOOD COUNT 14.2 X10e3 (4.0-10.5)
[2016-12-09 05:33] LABS: DIFF IND NO
[2016-12-09 06:09] LABS: BLOOD UREA NITROGEN 33 mg/dL (9-23); BUN/CREATININE RATIO 36.66; CALCIUM SERUM 8.7 mg/dL (8.4-10.2); CARBON DIOXIDE 36 mmol/L (22-31); CHLORIDE 99 mmol/L (100-111); CREATININE SERUM 0.9 mg/dL (0.6-1.4); GLOM FILT RATE Estimated ABOVE60 mL/min (>60); GLUCOSE FASTING 114 mg/dL (70-110); POTASSIUM 3.5 mmol/L (3.5-5.1); SODIUM 141 mmol/L (135-145)
[2016-12-10 05:03] LABS: HEMATOCRIT 42.8 % (35.0-45.0); HEMOGLOBIN 13.3 gm/dL (12.0-16.0); MEAN CELL VOLUME 81.6 FL (83-96); MEAN CORPUSCULAR HEMOGLOBIN 25.4 PG (28-34); MEAN CORPUSCULAR HGB CONC 31.1 g/dL (30-36); MEAN PLATELET VOLUME 9.7 FL (6.5-11.5); RED BLOOD COUNT 5.24 X10e (3.90-5.30); RED CELL DISTRIBUTION WIDTH 16.9 % (11.0-15.5); WHITE BLOOD COUNT 9.3 X10e3 (4.0-10.5)
[2016-12-10 05:24] LABS: PARTIAL THROMBOPLASTIN TIME 23.2 SECONDS (23.5-31.3); PROTHROMBIN TIME (PATIENT) 10.5 SECONDS (9.6-11.5)
[2016-12-10 06:30] LABS: BLOOD UREA NITROGEN 26 mg/dL (9-23); BUN/CREATININE RATIO 28.88; CALCIUM SERUM 8.9 mg/dL (8.4-10.2); CARBON DIOXIDE 35 mmol/L (22-31); CHLORIDE 99 mmol/L (100-111); CREATININE SERUM 0.9 mg/dL (0.6-1.4); GLOM FILT RATE Estimated ABOVE60 mL/min (>60); GLUCOSE FASTING 127 mg/dL (70-110); POTASSIUM 4.1 mmol/L (3.5-5.1); SODIUM 142 mmol/L (135-145)
[2016-12-11 08:20] LABS: BLOOD UREA NITROGEN 21 mg/dL (9-23); BUN/CREATININE RATIO 26.25; CALCIUM SERUM 8.9 mg/dL (8.4-10.2); CARBON DIOXIDE 31 mmol/L (22-31); CHLORIDE 98 mmol/L (100-111); CREATININE SERUM 0.8 mg/dL (0.6-1.4); GLOM FILT RATE Estimated ABOVE60 mL/min (>60); GLUCOSE FASTING 197 mg/dL (70-110); POTASSIUM 3.9 mmol/L (3.5-5.1); SODIUM 136 mmol/L (135-145)
[2016-12-11 14:43] LABS: ARTERIAL BLD GAS O2 SATURATION 90.4 % (90.0-100.0); ARTERIAL BLOOD GAS CARBOXY HB 1.3 %sat (0.0-9.0); ARTERIAL BLOOD GAS HCO3 33.9 mmol/L; ARTERIAL BLOOD GAS MET HB 0.7 %sat (0.0-2.0); ARTERIAL BLOOD GAS pH 7.358 (7.350-7.450)
[2016-12-11 14:44] LABS: ARTERIAL BLOOD GAS ALLEN TEST NORMAL; ARTERIAL BLOOD GAS ART SITE LEFT RADIAL; ARTERIAL BLOOD GAS DELIVERY NASAL CANNULA; ARTERIAL BLOOD GAS PCO2 60.2 mmHg (35.0-45.0); ARTERIAL BLOOD GAS PO2 63.5 mmHg (80.0-100); ARTERIAL DRAW? YES
[2016-12-11 15:11] LABS: URINE APPEARANCE CLEAR; URINE BILIRUBIN NEG (NEG); URINE BLOOD NEG (NEG); URINE COLOR YELLOW; URINE GLUCOSE NEG (NEG); URINE KETONE NEG (NEG); URINE LEUKOCYTE ESTERASE NEG (NEG); URINE NITRATE NEG (NEG); URINE PROTEIN NEG (NEG)
[2016-12-11 15:19] LABS: CULTURE INDICATED? NO
[2016-12-12 14:51] LABS: ARTERIAL BLD GAS O2 SATURATION 95.5 % (90.0-100.0); ARTERIAL BLOOD GAS CARBOXY HB 1.1 %sat (0.0-9.0); ARTERIAL BLOOD GAS HCO3 32.8 mmol/L; ARTERIAL BLOOD GAS MET HB 0.9 %sat (0.0-2.0); ARTERIAL BLOOD GAS PO2 85.8 mmHg (80.0-100); ARTERIAL BLOOD GAS pH 7.378 (7.350-7.450)
[2016-12-12 14:52] LABS: ARTERIAL BLOOD GAS ALLEN TEST N; ARTERIAL BLOOD GAS ART SITE RIGHT RADIAL; ARTERIAL BLOOD GAS DELIVERY OXYMIZER; ARTERIAL BLOOD GAS PCO2 55.8 mmHg (35.0-45.0); ARTERIAL DRAW? YES
[2016-12-13 08:30] LABS: BASOPHIL% 0.5 % (0-2.5); EOSINOPHIL% 0.1 % (0.0-7.0); HEMATOCRIT 44.2 % (35.0-45.0); LYMPHOCYTE# 0.3 X10e3 (1.0-3.5); LYMPHOCYTE% 6.1 % (17.0-45.0); MEAN CELL VOLUME 81.8 FL (83-96); MEAN CORPUSCULAR HEMOGLOBIN 25.9 PG (28-34); MEAN CORPUSCULAR HGB CONC 31.6 g/dL (30-36); MONOCYTE# 0.2 X10e3 (0-1.0); MONOCYTE% 4.5 % (3.0-12.0); NEUTROPHIL# 4.9 X10e3 (1.5-7.1); NEUTROPHIL% 88.8 % (40-75); PLATELET COUNT 149 X10e3 (140-420); RED BLOOD COUNT 5.41 X10e (3.90-5.30); RED CELL DISTRIBUTION WIDTH 15.9 % (11.0-15.5); WHITE BLOOD COUNT 5.5 X10e3 (4.0-10.5)
[2016-12-13 08:34] LABS: DIFF IND NO
[2016-12-13 09:00] LABS: BLOOD UREA NITROGEN 26 mg/dL (9-23); BUN/CREATININE RATIO 28.88; CARBON DIOXIDE 31 mmol/L (22-31); CHLORIDE 100 mmol/L (100-111); CREATININE SERUM 0.9 mg/dL (0.6-1.4); GLOM FILT RATE Estimated ABOVE60 mL/min (>60); GLUCOSE FASTING 201 mg/dL (70-110); POTASSIUM 4.4 mmol/L (3.5-5.1); SODIUM 138 mmol/L (135-145)
[2016-12-14 08:01] LABS: BLOOD UREA NITROGEN 28 mg/dL (9-23); CALCIUM SERUM 8.3 mg/dL (8.4-10.2); CARBON DIOXIDE 31 mmol/L (22-31); CHLORIDE 102 mmol/L (100-111); CREATININE SERUM 0.8 mg/dL (0.6-1.4); GLOM FILT RATE Estimated ABOVE60 mL/min (>60); GLUCOSE FASTING 136 mg/dL (70-110); POTASSIUM 3.8 mmol/L (3.5-5.1); SODIUM 143 mmol/L (135-145)
[2016-12-15 09:10] LABS: BLOOD UREA NITROGEN 28 mg/dL (9-23); BUN/CREATININE RATIO 31.11; CARBON DIOXIDE 40 mmol/L (22-31); CHLORIDE 96 mmol/L (100-111); CREATININE SERUM 0.9 mg/dL (0.6-1.4); GLOM FILT RATE Estimated ABOVE60 mL/min (>60); GLUCOSE FASTING 139 mg/dL (70-110); POTASSIUM 4.2 mmol/L (3.5-5.1); SODIUM 143 mmol/L (135-145)
[2016-12-16 05:12] LABS: HEMATOCRIT 41.8 % (35.0-45.0); MEAN CELL VOLUME 81.9 FL (83-96); MEAN CORPUSCULAR HEMOGLOBIN 25.5 PG (28-34); MEAN CORPUSCULAR HGB CONC 31.1 g/dL (30-36); MEAN PLATELET VOLUME 9.9 FL (6.5-11.5); RED BLOOD COUNT 5.1 X10e (3.90-5.30); RED CELL DISTRIBUTION WIDTH 16.3 % (11.0-15.5); WHITE BLOOD COUNT 7.1 X10e3 (4.0-10.5)
[2016-12-16 06:05] LABS: BLOOD UREA NITROGEN 31 mg/dL (9-23); CALCIUM SERUM 8.7 mg/dL (8.4-10.2); CARBON DIOXIDE 39 mmol/L (22-31); CHLORIDE 92 mmol/L (100-111); GLOM FILT RATE Estimated ABOVE60 mL/min (>60); GLUCOSE FASTING 285 mg/dL (70-110); POTASSIUM 4.1 mmol/L (3.5-5.1); SODIUM 139 mmol/L (135-145)
[2016-12-17 08:00] LABS: BLOOD UREA NITROGEN 29 mg/dL (9-23); BUN/CREATININE RATIO 36.25; CALCIUM SERUM 9.6 mg/dL (8.4-10.2); CARBON DIOXIDE 38 mmol/L (22-31); CHLORIDE 88 mmol/L (100-111); CREATININE SERUM 0.8 mg/dL (0.6-1.4); GLOM FILT RATE Estimated ABOVE60 mL/min (>60); GLUCOSE FASTING 164 mg/dL (70-110); POTASSIUM 3.7 mmol/L (3.5-5.1); SODIUM 142 mmol/L (135-145)
[2016-12-17] MEDS ORDERED: PREDNISONE PO (17:54)
[2016-12-17] MEDS ORDERED: TYL325 PO (17:54)
[2016-12-17] MEDS ORDERED: BUMEX2 MG PO (17:55)
[2016-12-17] MEDS ORDERED: MYCOSTATIN15 GM POW EXT (17:55)
[2016-12-17] MEDS ORDERED: LEVEMIR100 UNITS/ SUBQ (17:56)
[2016-12-17] MEDS ORDERED: AMOXICILLIN875 MG PO (17:57)
[2016-12-17] MEDS ORDERED: CLOPIDOGREL75 MG PO (17:58)
[2016-12-17] MEDS ORDERED: ALDACTONE25 MG PO (17:58)
[2016-12-17] MEDS ORDERED: NITROGLYGERIN0.4 MG SL (18:02)
== END 2016-12-17 20:58 | disposition home health service (06) | DRG 286 ==
LOC: CED 16:15 → CEDOF 17:55 → CICCU2 20:48 → C5B 12-08 20:56
PROVIDERS: Emergency Medicine; Hospitalist; Internal Medicine; Internal Medicine Cardiovascular Disease; Physician Assistant Medical
PROC: 4A023N8 Measurement of Cardiac Sampling and Pressure, Bilateral, Percutaneous Approach (ICD-10-PCS; principal; 2016-12-10)
PROC: B211YZZ Fluoroscopy of Multiple Coronary Arteries using Other Contrast (ICD-10-PCS; 2016-12-10)
PROC: B215YZZ Fluoroscopy of Left Heart using Other Contrast (ICD-10-PCS; 2016-12-10)
PROC: B32SYZZ Computerized Tomography (CT Scan) of Right Pulmonary Artery using Other Contrast (ICD-10-PCS; 2016-12-14)
PROC: B32TYZZ Computerized Tomography (CT Scan) of Left Pulmonary Artery using Other Contrast (ICD-10-PCS; 2016-12-14)
DX: I11.0 Hypertensive heart disease with heart failure (principal); J96.21 Acute and chronic respiratory failure with hypoxia; J18.9 Pneumonia, unspecified organism; E87.3 Alkalosis; I42.9 Cardiomyopathy, unspecified; E11.65 Type 2 diabetes mellitus with hyperglycemia; J44.1 Chronic obstructive pulmonary disease with (acute) exacerbation; Z68.43 Body mass index [BMI] 50.0-59.9, adult; J96.22 Acute and chronic respiratory failure with hypercapnia; I50.23 Acute on chronic systolic (congestive) heart failure; Z88.2 Allergy status to sulfonamides; I25.10 Atherosclerotic heart disease of native coronary artery without angina pectoris; Z98.61 Coronary angioplasty status; F17.210 Nicotine dependence, cigarettes, uncomplicated; I25.2 Old myocardial infarction; E66.01 Morbid (severe) obesity due to excess calories; Z87.442 Personal history of urinary calculi; Z90.49 Acquired absence of other specified parts of digestive tract; Z90.710 Acquired absence of both cervix and uterus; G47.33 Obstructive sleep apnea (adult) (pediatric)
CPT/HCPCS: 36600; 70450; 71010; 71020; 71275; 80048; 80053; 80076; 80202; 81003; 82308; 82553; 82803; 82947; 83036; 83880; 84484; 85025; 85027; 85610; 85730; 87040; 87070; 87205; 93005; 94010; 94640; 94660; 94664; 94760; 94761; 96374; 97110; 97116; 97161; 97164; 97166; 97535; 99291; C1769; C1887; C1894; C9113; G8978-GP; G8979-GP; G8980-GP; G8987-GO; G8988-GO; J1120; J1644; J1650; J1815; J1885; J1940; J2060; J2250; J2405; J2543; J2920; J2930; J3010; J3370; Q9967

== ENCOUNTER → 2017-01-19 | Outpatient (CLI) | payer MEDICARE ==
[~2017-01-19] MED LIST changes: +ALDACTONE25 MG PO; +AMOXICILLIN875 MG PO; +BUMEX2 MG PO; +CLOPIDOGREL75 MG PO; +ISOSORBIDE MONO60 M1 PO; +JANUVIA PO; +LEVEMIR100 UNITS/ SUBQ; +MYCOSTATIN15 GM POW EXT; +NITROGLYGERIN0.4 MG SL; +PRILOSEC PO; +TYL325 PO; +VALIUM10 M1 PO
--- NOTE | ~2017-01-19 | MY11 ---
[facility] A Service of [facility] RADIOLOGY TEXT RESULTS PATIENT: KYM TELLEZ LOCATION: [facility] : 62 UNIT #: [id number] AGE: [address]: José Arshad MD SEX: F ORDER DR: [id number] [address] [address] [id number] O MR#: [id number] Acc #: [id number] NAME: KYM TELLEZ : 1960 SEX: F STUDY DATE/TIME: 01/19/2017 10:45 UNIT: [facility] ROOM: STUDY DESCRIPTION: MY Mammogram Screening [place] Attending Physician: José Arshad M.D. Referring Physician: José Arshad M.D. Ordering Physician: José Arshad M.D. Primary Care Physician: José Arshad M.D. MEDICAL IMAGING REPORT This report is preliminary unless electronic signature is present. EXAM Digital screening mammogram 01/19/[address] [facility] [place] [place] HISTORY 56-year-old woman no risk elevation. Annual screen COMPARISON Mammograms date to 07/27/2005 with most recent 02/27/2014 FINDINGS Digital imaging of each breast was completed utilizing a two-view examination of each breast in craniocaudal and mediolateral-oblique projections. Review and interpretation of digital mammograms include a second review in conjunction with FDA-approved CAD device. There is a normal parenchymal presentation bilaterally consistent with the patient's age. There are no breast masses imaged and no parenchymal asymmetry is visualized. There are no suspicious microcalcifications and I see no focal architectural disturbance. IMPRESSION Negative screening digital mammogram. One-year followup recommended. Patients over the age of 40 are entered into a reminder system with target due date for the next mammogram. A result letter will also be sent to the patient. BIRADS: 1 Negative Dictated by... Joo Benites M.D. [facility] A Service of [facility] RADIOLOGY TEXT RESULTS PATIENT: KYM TELLEZ LOCATION: [facility] : 62 UNIT #: [id number] AGE: [address]: José Arshad MD SEX: F ORDER DR: THIS IS AN ELECTRONICALLY VERIFIED REPORT Joo Benites M.D. at 01/19/2017 2:17 PM GLENN/tory TD: 01/19/2017 13:07 JOB #: [id number] MEDICAL IMAGING REPORT Page 1 of 1
== END | disposition home or self-care (01) ==
LOC: SMAM 10:09
DX: Z12.31 Encounter for screening mammogram for malignant neoplasm of breast (principal)
CPT/HCPCS: G0202